=== PATIENT | female | born 1995 | race African-American/Black ===

== ENCOUNTER 2017-03-30 18:11 | Outpatient (CLI) | payer MEDICAID ==
[2017-03-30] MEDS ORDERED: LACTATED RINGERS 500 ML IV ONE (18:51)
[2017-03-30] MEDS ORDERED: ZOFRAN IV ONE (20:01)
[2017-03-30] MEDS ORDERED: TYLENOL PO ONE (20:01)
[2017-03-30 20:21] LABS: Bilirubin,Urine NEG (Negative); Blood,Urine NEG (Negative); Ketones,Urine 80 mg/dL (Negative); Leukocyte Esterase,Urine TR (Negative); Mucus,Urine FEW /HPF; Nitrite,Urine NEG (Negative); Protein,Urine <15 mg/dL mg/dL (Negative); Urobilinogen,Urine < 2.0 mg/dL (<2.0)
[2017-03-30 20:40] VITALS: BP 120/53
[2017-03-30 20:43] LABS: Hematocrit 36.9 % (30.3-42.9); Hemoglobin 12.3 gm/dl (10.1-14.3); Mean Corpuscular HGB Conc 33 % (30-34); Mean Corpuscular Hemoglobin 28 pg (28-32); Mean Corpuscular Volume 85 fl (79-97); Platelet Count 178 K/mm3 (140-440); Red Blood Count 4.36 M/mm3 (3.65-5.03); Red Cell Distribution Width 14.3 % (13.2-15.2); White Blood Count 8.6 K/mm3 (4.5-11.0)
[2017-03-30 20:52] LABS: Alanine Aminotransferase 14 units/L (7-56); Albumin 3.7 g/dL (3.9-5); Albumin/Globulin Ratio 0.9 %; Alkaline Phosphatase 120 units/L (35-129); Anion Gap 23 mmol/L; Blood Urea Nitrogen 6 mg/dL (7-17); Calcium 9.5 mg/dL (8.4-10.2); Carbon Dioxide 20 mmol/L (22-30); Chloride 97.5 mmol/L (98-107); Glucose 76 mg/dL (65-100); Sodium 136 mmol/L (137-145); Total Protein 7.6 g/dL (6.3-8.2)
== END 2017-03-30 21:40 | disposition home or self-care (01) ==
LOC: TRG 18:11
PROVIDERS: ATTEND Obstetrics & Gynecology
DX: O47.03 False labor before 37 completed weeks of gestation, third trimester (principal); Z87.891 Personal history of nicotine dependence; Z3A.36 36 weeks gestation of pregnancy
CPT/HCPCS: 36415; 80053; 81001; 85027; 96360; J2405; J7120